=== PATIENT | female | born 1950 | race Caucasian/White ===

== ENCOUNTER 2018-04-04 20:56 | Day surgery (SDC) | payer MEDICARE, OTHER ==
[~2018-04-04] VITALS: Ht 170.2 cm; Wt 140.6 kg
[~2018-04-04 20:56] MED LIST: MIDAZOLAM 5 MG/5 ML (VERSED) VIAL ONE; diphenhydrAMINE 50 MG/ML INJ (BENADRYL) ONE; fentaNYL INJECTION 100 MCG/2 ML AMP ONE
[2018-04-04] MEDS ORDERED: LIDOCAINE 1% INJ 20 ML 20 ML VIAL INJ ONE (20:57)
[2018-04-04] MEDS ORDERED: NS 1000 ML IV BAG IV ONE (20:57)
[2018-04-04] MEDS ORDERED: HEPARIN 2000 UNIT/2 ML IV ONE (20:57)
--- NOTE | 2018-04-04 21:05 | Cardiac Procedure Note-CS/ASA ---
Pre-Procedure Note Pre-Op Procedure Note H&P Reviewed The H&P was reviewed, patient examined and no changes noted. Date H&P Reviewed: Apr 04, 2018 Time H&P Reviewed: 21:05 Conscious Sedation Pre-Proced Time Reviewed: 21:05 ASA Class: 3 Airway Mallampati Classification: (napaimute appropriate class) I. II. III, IV Lungs Heart ASA score ASA 1: a normal healthy patient ASA 2: a patient with a mild systemic disease (mid diabetes, controlled hypertension, obesity ASA 3: a patient with a severe systemic disease that limits activity (angina , COPD, prior Myocardial infarction) ASA 4: a patient with an incapacitating disease that is a constant threat to life (CHF, renal failure) ASA 5: a moribund patient not expected to survive 24 hrs. (ruptured aneurysm) ASA 6: a declared brain patient whose organs are being harvested. For emergent operations, add the letter E after the classification Grade 3 Sedation Plan: Analgesia, Amnesia, Plan communicated to team members, Discussed options with patient/fam, Discussed risks with patient/fam Note The patient is an appropriate candidate to undergo the planned procedure, sedation, and anesthesia. The patient immediately re-assessed prior to indication. ROYCE GARCIA MD FACP FAC CCDS Apr 04, 2018 21:05
--- NOTE | 2018-04-04 21:13 | Cardiology History & Physical ---
HPI-Cardiology Cardiology H&P Date of Admission 04/04/18 Primary Care Physician Attending Physician Sunil Lindsey MD, MA FACP [facility] Consulting Physician JUANITA 68 yo woman with multiple risk factors for CAD who is transferred to us from the [place] after she had presented with approx 4 hours of nausea and vomiting and gen discomfort and was found to have LBBB on ECG (no old ECGs) available and troponin was elevated. She does not report any specific chest or abd discomfort. Denies palp or syncope. Has chronic slowly progressive shortness of breath. Does not report leg discomfort or swelling Review of Systems-Cardiology Review of Systems Constitutional: tiredness; No weight loss, No weight gain Eyes: No vision change Ears/Nose/Throat: No ear discharge, No nasal drainage, No recent hearing loss Respiratory: No As described under HPI Cardiovascular: As described under HPI Gastrointestinal: No constipation, No diarrhea; nausea, vomiting Genitourinary: No dysuria, No hematuria, No urine frequency changes Musculoskeletal: back pain (chronic) Skin: No rash, No ulcerations Psychiatric/Neurological: No seizure, No focal weakness, No syncope Hematologic: No bleeding abnormalities EZD-Dvulqx-Zqpbps Hx Patient Social History Smoking Status: Current Someday Smoker Type Used: Cigarettes Past Medical History PMH As described under Assessment. Family Medical History Family Medical History: No fam h/o of early CAD or SCD Allergies and Home Medications Patient Home Medication List Home Medication List Reviewed: Yes Physical Exam-Cardiology Physical Exam Vital Signs/I&O Capillary Refill : Constitutional: AAO x 3, well-developed, well-nourished, other (obese) HEENT: PERRL, EOMI, hearing is well preserved; No xanthelasmas are seen Neck: carotid pulses are 2 + bilaterally, with good upstrokes Respiratory: No accessory muscle use; other (good bilat air entry) Cardiovascular: regular rate-rhythm, S1 and S2, systolic murmur (soft SP at card base) Gastrointestinal: No tender; soft; No guarding, No rebound; audible bowel sounds Extremities: No clubbing, No cyanosis, No significant edema Neurologic/Psychiatric: oriented x 3, grossly intact, power is 5/5 both on sides Skin: No rash on exposed areas, No ulcerations on exposed areas A/P-Cardiology Assessment/Admission Diagnosis See note signed earlier today Admission Status: Observation Discussion and Recomendations See note signed earlier today SUNIL LINDSEY MD FACP FACC CCDS Apr 04, 2018 21:13
--- NOTE | 2018-04-04 21:45 | Cardiology History & Physical ---
HPI-Cardiology Cardiology H&P Date of Admission 04/04/18 Primary Care Physician Attending Physician Sunil Lindsey MD, MA FACP [facility] Consulting Physician JUANITA 68 yo woman with multiple risk factors for CAD who is transferred to us from the [place] after she had presented with approx 4 hours of nausea and vomiting and gen discomfort and was found to have LBBB on ECG (no old ECGs) available and troponin was elevated. She does not report any specific chest or abd discomfort. Denies palp or syncope. Has chronic slowly progressive shortness of breath. Does not report leg discomfort or swelling Review of Systems-Cardiology Review of Systems Constitutional: tiredness; No weight loss, No weight gain Eyes: No vision change Ears/Nose/Throat: No ear discharge, No nasal drainage, No recent hearing loss Respiratory: No As described under HPI Cardiovascular: As described under HPI Gastrointestinal: No constipation, No diarrhea; nausea, vomiting Genitourinary: No dysuria, No hematuria, No urine frequency changes Musculoskeletal: back pain (chronic) Skin: No rash, No ulcerations Psychiatric/Neurological: No seizure, No focal weakness, No syncope Hematologic: No bleeding abnormalities FEG-Iwzinn-Ledldw Hx Patient Social History Smoking Status: Current Someday Smoker Type Used: Cigarettes Past Medical History PMH As described under Assessment. Family Medical History Family Medical History: No fam h/o of early CAD or SCD Allergies and Home Medications Patient Home Medication List Home Medication List Reviewed: Yes Physical Exam-Cardiology Physical Exam Vital Signs/I&O Capillary Refill : Constitutional: AAO x 3, well-developed, well-nourished, other (obese) HEENT: PERRL, EOMI, hearing is well preserved; No xanthelasmas are seen Neck: carotid pulses are 2 + bilaterally, with good upstrokes Respiratory: No accessory muscle use; other (good bilat air entry) Cardiovascular: regular rate-rhythm, S1 and S2, systolic murmur (soft SP at card base) Gastrointestinal: No tender; soft; No guarding, No rebound; audible bowel sounds Extremities: No clubbing, No cyanosis, No significant edema Neurologic/Psychiatric: oriented x 3, grossly intact, power is 5/5 both on sides Skin: No rash on exposed areas, No ulcerations on exposed areas A/P-Cardiology Assessment/Admission Diagnosis Ac cor syndrome suspected (elevated troponin, risk factors, nonspecific symptoms , LBBB) LBBB DM II Chronic tobacco use Hypertension Hyperlipidemia Obesity Admission Status: Observation Discussion and Recomendations * Urgent cath recommend * We reviewed the rationale, risks, benefits, complications and alternatives of card cath and possible ad hoc cor intervention with her. She understands and provides informed consent * Advised to quit smoking immediately and completely SUNIL LINDSEY MD FACP FACC CCDS Apr 04, 2018 21:45
[2018-04-04] MEDS: NS IV 1000 ML 1,000 ML IV SCH (22:06)
[2018-04-04 22:08] VITALS: BP 129/70
[2018-04-04 22:15] VITALS: BP 143/83
[2018-04-04] MEDS ORDERED: TEMAZEPAM 7.5 MG CAP (RESTORIL) PO PRN (22:15)
[2018-04-04] MEDS ORDERED: meTOproloL SUCCINATE 50 MG (TOPROL XL) TAB PO SCH (22:15)
[2018-04-04] MEDS ORDERED: PATIENT MAY USE OWN MEDS, ALL PO SCH (22:15)
[2018-04-04] MEDS ORDERED: ACETAMINOPHEN 500 MG TAB (TYLENOL) PO PRN (22:15)
[2018-04-04] MEDS ORDERED: ONDANSETRON 4 MG/2 ML (SDV) Z0FRAN IVP PRN (22:15)
[2018-04-04] MEDS ORDERED: FAMOTIDINE 20 MG (PEPCID) TABLET PO ONE (22:15)
[2018-04-04] MEDS ORDERED: KCL 20 MEQ TAB (K-DUR) PO ONE (22:15)
[2018-04-04 22:30] VITALS: BP 119/75
--- NOTE | 2018-04-04 22:56 | CARDIAC CATHETERIZATION ---
DATE OF SERVICE: 04/04/2018 CARDIAC CATHETERIZATION REPORT The patient is a 68-year-old lady who had gone to the [facility] with nausea and vomiting. She was found to have a left bundle-branch block of undetermined age and her troponin was elevated. She was thought to be having a myocardial infarction and was sent to us for cardiac catheterization. Informed consent was obtained and we proceeded with a cardiac catheterization. PROCEDURE: The right groin was prepped and draped in the usual sterile fashion. A 1% lidocaine for local anesthesia. Modified Seldinger technique to advance a 6-Peruvian sheath right femoral artery. A 6-Peruvian JL4 catheter for left coronary angiography. A 6-Peruvian JR4 catheter for right coronary angiography. A 6-Peruvian pigtail catheter was used for left heart catheterization and left ventricular angiography. The pigtail catheter was pulled back to the aortic arch and aortic arch angiography was performed. At the end of the procedure, angiography of the right femoral artery was carried out through the sheath and Mynx was used to achieve hemostasis. She tolerated the procedure well. HEMODYNAMICS: Left ventricular end-diastolic pressure following coronary angiography was 11 mmHg. There was no significant pressure gradient pullback across the aortic valve. Ascending aortic pressure is 128/63 with a mean of 88 mmHg. LEFT VENTRICULAR ANGIOGRAPHY: Left ventricular angiography was carried out in right anterior oblique projection. Global left ventricular systolic function normal. No regional wall motion abnormality seen. Left ventricular ejection fraction is approximately 65%. There does not appear to be significant mitral regurgitation. AORTIC ARCH ANGIOGRAPHY: Aortic arch angiography does not indicate any significant thoracic aortic aneurysm or dissection. The neck vessels, to the extent seen, do not exhibit significant disease. Visualization of the neck vessels, however, is very limited. CORONARY ANGIOGRAPHY: Left main coronary artery, left anterior descending artery, left circumflex artery and right coronary artery are all angiographically normal appearing. The right coronary artery is dominant. CONCLUSIONS: 1. No angiographically significant coronary artery disease. 2. Normal global left ventricular systolic function with ejection fraction 65%. 3. Normal left ventricular end-diastolic pressure. 4. No significant mitral regurgitation. DISCUSSION AND RECOMMENDATIONS: Based on the study, there is no evidence of any acute coronary syndrome. She does have multiple coronary artery disease risk factors. Risk factor modification is advised. Immediate and complete cessation of smoking is advised. Job ID: [id number] DocumentID: [id number] Dictated Date: 04/04/2018 21:55:59 Boomswing Operator Date: 04/04/2018 22:54:52 Dictated By: ROYCE GARCIA MD, MA, FACP, FACC, MTDD
[2018-04-04 23:00] VITALS: BP 148/98
[2018-04-04 23:15] VITALS: BP 133/97
[2018-04-05] VITALS: BP 133/75
[2018-04-05 01:00] VITALS: BP 148/74
[2018-04-05 04:00] VITALS: BP 134/88
[2018-04-05 05:42] LABS: BASOPHILS % (AUTO) 0 % (0-10); EOSINOPHILS # (AUTO) 0.1 10^3/uL (0.0-0.3); EOSINOPHILS % (AUTO) 1 % (0-10); HEMATOCRIT 37 % (35-52); HEMOGLOBIN 12.4 G/DL (11.5-16.0); LYMPHOCYTES # (AUTO) 1.5 X 10^3 (1.0-4.0); LYMPHOCYTES % (AUTO) 14 % (12-44); MEAN CORPUSCULAR HEMOGLOBIN 31 PG (25-34); MEAN CORPUSCULAR HGB CONC 34 G/DL (32-36); MEAN CORPUSCULAR VOLUME 92 FL (80-99); MEAN PLATELET VOLUME 9.9 FL (7.4-10.4); MONOCYTES % (AUTO) 9 % (0-12); NEUTROPHILS # (AUTO) 8.1 X 10^3 (1.8-7.8); NEUTROPHILS % (AUTO) 76 % (42-75); PLATELET COUNT 290 10^3/uL (130-400); RED BLOOD COUNT 3.99 10^6/uL (4.35-5.85); RED CELL DISTRIBUTION WIDTH 13.7 % (10.0-14.5); WHITE BLOOD COUNT 10.6 10^3/uL (4.3-11.0)
[2018-04-05 06:10] LABS: ALANINE AMINOTRANSFERASE 21 U/L (0-55); ALBUMIN 3.6 GM/DL (3.2-4.5); ALKALINE PHOSPHATASE 57 U/L (40-136); BILIRUBIN,TOTAL 0.4 MG/DL (0.1-1.0); BUN/CREATININE RATIO 20; CALCIUM 9.8 MG/DL (8.5-10.1); CARBON DIOXIDE 30 MMOL/L (21-32); CHLORIDE 98 MMOL/L (98-107); CHOLESTEROL 140 MG/DL (< 200); CREATININE SERUM 0.66 MG/DL (0.60-1.30); GFR ESTIMATED > 60; GLUCOSE 100 MG/DL (70-105); HDL CHOLESTEROL 54 MG/DL (40-60); MAGNESIUM 1.9 MG/DL (1.8-2.4); POTASSIUM 3.3 MMOL/L (3.6-5.0); SODIUM 137 MMOL/L (135-145); TOTAL PROTEIN 6.5 GM/DL (6.4-8.2); TRIGLYCERIDES 75 MG/DL (<150); VLDL CHOLESTEROL 15 MG/DL (5-40)
[2018-04-05] MEDS: inSUlin ASPART (NovoLOG) 1 UNIT/0.01 ML (CHARGE PER UNIT) SC SCH ×2 (06:12→10:08)
[2018-04-05 08:00] VITALS: BP 128/76
[2018-04-05] MEDS: NS IV 1000 ML 1,000 ML IV SCH (08:25)
[2018-04-05] MEDS ORDERED: meTOprolol SUCCINATE 100 MG (TOPROL XL) TAB PO SCH (09:00)
[2018-04-05] MEDS ORDERED: VALS80TA31 PO (09:50)
[2018-04-05] MEDS ORDERED: METF500T5 PO (09:50)
[2018-04-05] MEDS ORDERED: TRAM50TA2 PO (09:50)
[2018-04-05] MEDS ORDERED: DILT360C36 PO (09:50)
[2018-04-05] MEDS ORDERED: METO-370 PO (09:50)
[2018-04-05] MEDS ORDERED: FURO-125 PO (09:50)
[2018-04-05] MEDS ORDERED: PARO30TA74 PO (09:50)
[2018-04-05] MEDS ORDERED: ATOR20TA66 PO (09:50)
[2018-04-05] MEDS ORDERED: METO2.5T PO (09:50)
--- NOTE | 2018-04-05 10:08 | Consultation-Hospitalist ---
HPI History of Present Illness: HPI/Chief Complaint This is a 68-year-old white female who was previously well until yesterday when she had gotten up in the morning and fixed her family breakfast but then felt very fatigued and lay down. She fell asleep and upon awakening was very dizzy broke out in a hot sweat and began vomiting uncontrollably. She had no weakness or numbness of any of her extremities. She denied having any chest pain. Her family notes that she was using her abdominal muscles to breathe in a strange fashion. She denies having any loss of consciousness but just the dizziness with the vomiting. In addition she denied having any shortness of breath. At the time of my interview this morning she says the dizziness has resolved she's hungry and anxious to go home. Cardiac catheterization yesterday was unremarkable Source: patient Exam Limitations: no limitations Date Seen 04/05/18 Attending Physician Sunil Lindsey MD Facp Facc Ccds PCP Aston Galindo MD Referring Physician César Date of Admission 04/04/18 Home Medications & Allergies Home Medications Reviewed patient Home Medication Reconciliation performed by pharmacy medication reconciliations software technician and/or nursing. Patients Allergies have been reviewed. Allergies Allergies Coded Allergies Penicillins (Verified Allergy, Mild, NAUSEA, 04/04/18) Tetanus Vaccines and Toxoid (Verified Allergy, Mild, HIVES, 04/04/18) morphine (Verified Allergy, Mild, HIVES, 04/04/18) Past Oeluted-Maolqh-Ezyuuu Hx Past Med/Social Hx: Reviewed Nursing Past Med/Soc Hx Patient Social History Marrital Status: Employed/Student: part-time employed Alcohol Use: Rarely Uses Recreational Drug Use: No Smoking Status: Current Everyday Smoker Type Used: Cigarettes Physical Abuse Screen: No Sexual Abuse: No Recent Foreign Travel: No Contact w/other who traveled: No Recent Hopitalizations: No Recent Infectious Disease Expo: No Immunizations Up To Date Date of Pneumonia Vaccine: Apr 04, 2016 Seasonal Allergies Seasonal Allergies: No Past Medical History Surgeries: Hysterectomy (Secondary to menometrorrhagia), Joint Replacement ( Right knee replacement), Oophorectomy Hysterectomy Musculoskeletal: Rheumatoid Arthritis Endocrine: Diabetes, Non-Insulin dep Psychosocial: Anxiety, Depression History of Blood Disorders: No Family History Heart Disease Review of Systems Constitutional: diaphoresis, dizziness, weakness EENTM: no symptoms reported Respiratory: no symptoms reported Cardiovascular: no symptoms reported Gastrointestinal: nausea, vomiting Genitourinary: no symptoms reported Musculoskeletal: no symptoms reported Skin: no symptoms reported Psychiatric/Neurological: No Symptoms Reported Physical Exam Physical Exam Vital Signs Vital Signs - First Documented 04/04/18 22:08 Temp 98.0 Pulse 69 Resp 20 B/P (MAP) 129/70 (89) Pulse Ox 97 O2 Delivery Room Air Capillary Refill : Less Than 3 Seconds Height, Weight, BMI Height: 5'7.00" Weight: 310lbs. 0.0oz. 140.788868xg; 48.6 BMI Method: General Appearance: No Apparent Distress, WD/WN, Obese Eyes: Bilateral Eye Normal Inspection HEENT: Normal ENT Inspection, Other (Small hypopharynx) Neck: Normal Inspection, Non Tender, Limited Range of Motion Respiratory: Chest Non Tender, Lungs Clear, Normal Breath Sounds, No Accessory Muscle Use, No Respiratory Distress Cardiovascular: Regular Rate, Rhythm, No Gallop, No JVD, No Murmur, Normal Peripheral Pulses Gastrointestinal: Normal Bowel Sounds, No Organomegaly, Non Tender, Soft Rectal: Deferred Back: Normal Inspection, No CVA Tenderness, No Vertebral Tenderness Extremity: Normal Capillary Refill, Normal Inspection, Normal Range of Motion, Non Tender, No Calf Tenderness, Pedal Edema Neurologic/Psychiatric: Alert, Oriented x3, No Motor/Sensory Deficits, Normal Mood/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 Imaging: Reviewed Imaging Report Assessment/Plan Assessment and Plan Assess & Plan/Chief Complaint 1. Nausea and vomiting most likely secondary to vertigo- resolved 2. High risk for heart disease cardiac catheter yesterday within normal limits 3. Morbid obesity 4. Tobaccoism non-curtailed 5. Insulin resistance on metformin 6. Probable obstructive sleep apnea 7. Not current on screening colonoscopies 8. Left bundle branch block I was asked to see this patient in regards to her nausea and vomiting and the probable etiology. Her neuro exam is completely normal today and her nausea and vomiting has resolved. She notes that she's hungry and would like to eat. At this time I believe she is stable for discharge. Will address her continued tobaccoism and give her information about smoking cessation. In addition she was counseled today on stopping smoking. Did recommend to her strongly that she get a screening colonoscopy. In addition I recommended further evaluation for obstructive sleep apnea with an overnight sleep study. Also recommended a carbohydrate restricted diet for possible weight loss and improved control of her diabetes Clinical Quality Measures DVT/VTE Risk/Contraindication: Risk Factor Score Per Nursin RFS Level Per Nursing on Admit: 3=High Copy Copies To 1: ASTON GALINDO MD, KATHLEEN M MD Apr 05, 2018 10:08
[2018-04-05] MEDS ORDERED: VIT1CAPS44 PO (10:26)
[2018-04-05] MEDS ORDERED: CHOL10007 PO (10:26)
[2018-04-05] MEDS ORDERED: FLAX100031 PO (10:26)
[2018-04-05] MEDS ORDERED: CYAN10006 PO (10:26)
[2018-04-05] MEDS ORDERED: POTA99TA21 PO (10:26)
[2018-04-05] MEDS ORDERED: MAGN250T13 PO (10:26)
--- NOTE | 2018-04-05 17:35 | Progress Note-Cardiology ---
Cardiology SOAP Progress Note Subjective: Feels well No cp or palp or shortness of breath or N/V or groin discomfort or leg discomfort Wishes to go home Objective: I&O/Vital Signs 04/05/18 04/05/18 04/05/18 07:00 08:00 08:00 Temp 98.0 Pulse 71 68 Resp 18 B/P (MAP) 128/76 (93) Pulse Ox 98 95 O2 Delivery Room Air Room Air Weight (Pounds): 310 Weight (Ounces): 0.0 Weight (Calculated Kilograms): 140.256107 Condition: DP/PT pulses palpable Bruising: mild bruising Constitutional: AAO x 3, well-developed, well-nourished, other (obese) Respiratory: No accessory muscle use; other (good bilat air entry) Cardiovascular: regular rate-rhythm, S1 and S2, systolic murmur (soft SP at card base) Gastrointestional: No tender; soft; No guarding, No rebound; audible bowel sounds Extremities: No clubbing, No cyanosis, No significant edema Neurologic/Psychiatric: oriented x 3, grossly intact, power is 5/5 both on sides Skin: No rash on exposed areas, No ulcerations on exposed areas Results/Procedures: Labs Laboratory Tests 04/05/18 05:20: White Blood Count 10.6, Red Blood Count 3.99L, Hemoglobin 12.4, Hematocrit 37, Mean Corpuscular Volume 92, Mean Corpuscular Hemoglobin 31, Mean Corpuscular Hemoglobin Concent 34, Red Cell Distribution Width 13.7, Platelet Count 290, Mean Platelet Volume 9.9, Neutrophils (%) (Auto) 76H, Lymphocytes (%) (Auto) 14 , Monocytes (%) (Auto) 9, Eosinophils (%) (Auto) 1, Basophils (%) (Auto) 0, Neutrophils # (Auto) 8.1H, Lymphocytes # (Auto) 1.5, Monocytes # (Auto) 1.0, Eosinophils # (Auto) 0.1, Basophils # (Auto) 0.0, Sodium Level 137, Potassium Level 3.3L, Chloride Level 98, Carbon Dioxide Level 30, Anion Gap 9, Blood Urea Nitrogen 13, Creatinine 0.66, Estimat Glomerular Filtration Rate > 60, BUN/ Creatinine Ratio 20, Glucose Level 100, Calcium Level 9.8, Magnesium Level 1.9, Total Bilirubin 0.4, Aspartate Amino Transf (AST/SGOT) 34, Alanine Aminotransferase (ALT/SGPT) 21, Alkaline Phosphatase 57, Total Protein 6.5, Albumin 3.6, Triglycerides Level 75, Cholesterol Level 140, LDL Cholesterol Direct 63, VLDL Cholesterol 15, HDL Cholesterol 54, Thyroid Stimulating Hormone (TSH) 1.00 Laboratory Tests 04/05/18 05:20 A/P: Assessment: No evidence of ac cor syndrome. Card cath of 04/04/18 shows no significant CAD, normal LVEF Echo of 04/05/18 shows LVEF 60-65%, mild conc LVH, mild MR, PASP 40-45 mmHg Nausea and vomiting on 04/04/18, likely related to vertigo Mild hypokalemia due to vomiting, treated with supple K on 04/04/18. Vomiting and nausea have now resolved LBBB DM II Chronic tobacco use Hypertension Hyperlipidemia Obesity. Sleep apnea suspected Plan: Multiple issue reviewed and discussed I discussed her case with Dr Joy of the Hospitalist Yazmin K-rich foods have been advised for the next 3-4 days F/u is advised with pcp on N/V and blood work Sleep studies are advised Immediate and complete smoking cessation is advise Efforts at wgt loss are advised Outpt card f/u is advised Post-cath care instructions were provided She understands all of the above issues and states compliance ROYCE GARCIA MD FACP FAC CCDS Apr 05, 2018 17:35
--- NOTE | 2018-04-05 17:42 | Cardiology Discharge Summary ---
Diagnosis/Chief Complaint Date of Admission 04/04/18 Date of Discharge 04/05/18 Final/Discharge Diagnosis No evidence of ac cor syndrome. Card cath of 04/04/18 shows no significant CAD, normal LVEF Echo of 04/05/18 shows LVEF 60-65%, mild conc LVH, mild MR, PASP 40-45 mmHg Nausea and vomiting on 04/04/18, likely related to vertigo Mild hypokalemia due to vomiting, treated with supple K on 04/04/18. Vomiting and nausea have now resolved LBBB DM II Chronic tobacco use Hypertension Hyperlipidemia Obesity. Sleep apnea suspected Chief Complaint/HPI Chief Complaint/HPI 68 yo woman with multiple risk factors for CAD who is transferred to us from the [place] after she had presented with approx 4 hours of nausea and vomiting and gen discomfort and was found to have LBBB on ECG (no old ECGs) available and troponin was elevated. She does not report any specific chest or abd discomfort. Denies palp or syncope. Has chronic slowly progressive shortness of breath. Does not report leg discomfort or swelling Card cath did not show any acute cardiac issues N/V have resolved. Due to mild hypokalemia, K supple was given during hospitalization and she has been advised to stop metolazone. Dr Joy was consulted for N/V and she has done Ms Ramos's d/c meds and advised outpt f/ u with pcp Please refer to today's progress note for condition at d/c Discharge Summary Discussion & Recommendations Home Medications Reviewed patient Home Medication Reconciliation performed by pharmacy medication reconciliations chemical processing technician and/or nursing. Patients Allergies have been reviewed. Discharge Home Medications: Reviewed and agree with Discharge Medication list on patient's Discharge Instruction sheet Clinical Quality Measures DVT/VTE Risk/Contraindication: Risk Factor Score Per Nursin RFS Level Per Nursing on Admit: 3=High ROYCE GARCIA MD FACP FAC CCDS Apr 05, 2018 17:42
[2018-04-05] MEDS ORDERED: ATORVASTATIN 40 MG (LIPITOR) TABLET PO SCH (21:00)
== END 2018-04-05 11:35 | disposition home or self-care (01) ==
LOC: CATH 20:56 → ICU 22:02 → CATH 04-05 11:35
PROVIDERS: ATTEND Internal Medicine Cardiovascular Disease
DX: R42 Dizziness and giddiness (principal); I44.7 Left bundle-branch block, unspecified; R79.89 Other specified abnormal findings of blood chemistry; I10 Essential (primary) hypertension; E78.5 Hyperlipidemia, unspecified; E11.9 Type 2 diabetes mellitus without complications; F17.210 Nicotine dependence, cigarettes, uncomplicated; M06.9 Rheumatoid arthritis, unspecified; F41.9 Anxiety disorder, unspecified; F32.9 Major depressive disorder, single episode, unspecified; E66.01 Morbid (severe) obesity due to excess calories; Z68.42 Body mass index [BMI] 45.0-49.9, adult; Z79.84 Long term (current) use of oral hypoglycemic drugs
CPT/HCPCS: 36221; 36415; 80053; 80061; 83735; 84443; 85025; 93005; 93306; 93458